=== PATIENT | male | born 1930 | race Caucasian/White ===

== ENCOUNTER → 2017-10-04 | Outpatient (CLI) | payer OTHER ==
--- NOTE | 2017-10-04 10:19 | US ---
EXAMINATION TYPE: US duplex aorta DATE OF EXAM: 10/04/2017 COMPARISON: CT abdomen and pelvis August 13, 2013 CLINICAL HISTORY: Z13.9 Screening for disorder; following AAA; on medication for HTN EXAM MEASUREMENTS: Abdominal Aorta: Proximal: 2.6cm A/P by 2.5 cm transverse Mid: 2.3 x 3.2cm Transverse Distal: 4.9 x 5.5cm Transverse. Length of aneurysm is roughly 5 cm. Bifurcation: Right Common Iliac Artery = 1.7cm Transverse; Left Common Iliac Artery = 1.6cm Trans verse. Inferior Aortic aneurysm is noted with hyperechoic and thickened internal wall plaque continuing into BAILEY, but color flow patency is documented in aorta and into common iliac arteries; abnormally dilate d BAILEY. IMPRESSION: Progression in size of roughly 5 cm in length infrarenal abdominal aortic aneurysm which now measures up to 5.5 cm transversely and has prominent noncalcified plaque occupying nearly 50% of right-sided lumen. At minimum continued imaging monitoring every 3-6 months time is advised. Consider endovascular and/or surgical referral at this time.
== END | disposition home or self-care (01) ==
LOC: RADUSWWP 09:32
PROVIDERS: ATTEND Family Medicine
DX: I71.4 Abdominal aortic aneurysm, without rupture (principal)
CPT/HCPCS: 93979